=== PATIENT | female | born 1990 | race Caucasian/White ===

== ENCOUNTER 2021-06-04 19:48 | Emergency (ER) | payer OTHER ==
[2021-06-04] MEDS ORDERED: Ondansetron 4 MG/2 ML SDV IVPUSH ONE (20:34)
[2021-06-04] MEDS ORDERED: Sodium Chloride 0.9% 1,000 ML IV ONE (20:34)
[2021-06-04 20:51] LABS: CORONAVIRUS COVID-19 NAA NEGATIVE (NEGATIVE)
--- NOTE | 2021-06-04 21:37 | EDM.PDOC ---
ED HPI GENERAL MEDICAL PROBLEM - General Chief Complaint: HAND CHAIN MAKER Problem Stated Complaint: VOMITING/22WEEK PREG Time Seen by Provider: 06/04/21 20:02 Source of Information: Reports: Patient History Limitations: Reports: No Limitations - History of Present Illness INITIAL COMMENTS - FREE TEXT/NARRATIVE: 31-year-old female presents the emergency department with complaints of nausea and vomiting and diarrhea that started at approximately 1600 today. She states she has vomited 6-7 times since then is unable to keep any food or fluids down. She denies any fever, chills, cough, shortness of breath or body aches. She denies any urinary symptoms. Patient is almost 22 weeks , LMP the first week of January. Her due date is October 14, 2020. She is a 3 para 1. She had 1 miscarriage. She states that up until today she has had a healthy without any complications. She states she is normally healthy and does not take any prescription medications. Her HAND CHAIN MAKER is Dr. Zhao. Abdomen Pain Score (Numeric/FACES): 5 - Related Data Allergies Allergy/AdvReac Type Severity Reaction Status Date / Time diphenhydramine Allergy Severe Rash Verified 06/04/21 20:08 [From Benadryl] doxycycline Allergy Severe Rash Verified 06/04/21 20:08 sulfamethoxazole Allergy Severe Blisters Verified 06/04/21 20:08 [From Septra] trimethoprim [From Septra] Allergy Severe Blisters Verified 06/04/21 20:08 Home Meds: Home Meds Cetirizine [ZyrTEC] 10 mg PO DAILY 06/04/21 [History] Pnv No.95/Ferrous Fum/Folic AC [ Tablet] 1 tab PO DAILY 06/04/21 [History] Past Medical History HAND CHAIN MAKER History: Reports: Other HAND CHAIN MAKER History: vaginal delivery - Infectious Disease History Infectious Disease History: Reports: Novel Coronavirus - Past Surgical History Female Surgical History: Reports: D&C Social & Family History - Tobacco Use Tobacco Use Status *Q: Never Tobacco User - Caffeine Use Caffeine Use: Reports: Coffee - Recreational Drug Use Recreational Drug Use: No ED ROS GENERAL - Review of Systems Review Of Systems: Comprehensive ROS is negative, except as noted in HPI. ED EXAM, GI/ABD - Physical Exam Exam: See Below Exam Limited By: No Limitations General Appearance: Alert, WD/WN, Mild Distress Eyes: Bilateral: Normal Appearance Ears: Normal External Exam, Hearing Grossly Normal Nose: Normal Inspection Throat/Mouth: Normal Inspection, Normal Lips, Normal Voice, No Airway Compromise Head: Atraumatic Neck: Normal Inspection, Supple Respiratory/Chest: No Respiratory Distress, Lungs Clear, Normal Breath Sounds, No Accessory Muscle Use, Chest Non-Tender Cardiovascular: Normal Peripheral Pulses, Regular Rate, Rhythm, No Edema, No Murmur GI/Abdominal Exam: Normal Bowel Sounds, Soft, Non-Tender (Female) Exam: Deferred Rectal (Female) Exam: Deferred Back Exam: Normal Inspection Extremities: Normal Inspection Neurological: Alert, Oriented, Normal Cognition Psychiatric: Normal Affect, Normal Mood Skin Exam: Warm, Dry, Intact, Normal Color, No Rash Lymphatic: No Adenopathy Course - Vital Signs Text/Narrative:: Stated above, patient presents with nausea, vomiting and diarrhea that started this afternoon. The time of my exam, the patient is awake alert and oriented laying in bed. She states she has not had any vomiting since arriving in the emergency department and has taken a few sips of fluid. Physical exam is otherwise unremarkable. She is hemodynamically stable. Patient has been swabbed for Covid and influenza. Will medicate the patient with 1 L of normal saline as well as 4 mg of Zofran. Last Recorded V/S: Last Vital Signs Temp 97.9 F 06/04/21 20:13 Pulse 88 06/04/21 20:13 Resp 20 06/04/21 20:13 BP 119/82 06/04/21 20:13 Pulse Ox 100 06/04/21 20:13 - Orders/Labs/Meds Orders: Active Orders 24 hr Category Date Time Status Sodium Chloride 0.9% [Normal Saline] 1,000 ml Med 06/04/21 20:34 Active IV ONETIME Medication Orders Sodium Chloride (Normal Saline) 1,000 mls @ 999 mls/hr IV ONETIME ONE Stop: 06/04/21 21:34 Last Admin: 06/04/21 20:41 Dose: 999 mls/hr Documented by: MARIKA Labs: Laboratory Tests 06/04/21 06/04/21 Range/Units 20:00 20:00 Urine Color Yellow (Yellow) Urine Appearance Slt cloudy H (Clear) Urine pH 5.5 (5.0-8.0) Ur Specific [place] 1.025 (1.005-1.030) Urine Protein Trace H (Negative) Urine Glucose (UA) Negative (Negative) Urine Ketones 3+ H (Negative) Urine Occult Blood Negative (Negative) Urine Nitrite Negative (Negative) Urine Bilirubin 1+ H (Negative) Urine Urobilinogen 0.2 (0.2-1.0) Ur Leukocyte Esterase Trace H (Negative) Urine RBC 0-5 (0-5) /hpf Urine WBC 0-5 (0-5) /hpf Ur Squamous Epith Cells 10-20 H (0-5) /hpf Urine Bacteria Many H (FEW) /hpf Urine Mucus Few (FEW) /hpf Influenza Type A RNA Negative (NEGATIVE) Influenza Type B RNA Negative (NEGATIVE) SARS-CoV-2 RNA (GHAZALA) Negative (NEGATIVE) Meds: Medications Generic Name Dose Route Start Last Admin Trade Name Freq PRN Reason Stop Dose Admin Sodium Chloride 1,000 mls @ 999 mls/hr 06/04/21 20:34 06/04/21 20:41 Normal Saline IV 06/04/21 21:34 999 mls/hr ONETIME ONE Administration Discontinued Medications Generic Name Dose Route Start Last Admin Trade Name Freq PRN Reason Stop Dose Admin Ondansetron HCl 4 mg 06/04/21 20:34 06/04/21 20:41 Ondansetron 4 Mg/2 Ml Sdv IVPUSH 06/04/21 20:35 4 mg ONETIME ONE Administration - Re-Assessments/Exams Free Text/Narrative Re-Assessment/Exam: 06/04/21 21:35 Nursing staff notifies me that the patient is feeling much better. She has approximately 250 mL of fluids left in the 1 L of normal saline. 06/04/21 21:35 Influenza testing as well as Covid testing is negative. Urinalysis shows a trace leukocytes esterase however does appear to be contaminated. Patient has not had any urinary symptoms. She will be discharged home with recommendations that she drink plenty of fluids and get plenty rest. She will need to follow-up with her HAND CHAIN MAKER early next week. Departure - Departure Time of Disposition: 21:37 Disposition: Home, Self-Care 01 Condition: Good Clinical Impression: Gastroenteritis - Discharge Information Referrals: Corazon Zhao MD [Primary Care Provider] - Additional Instructions: You were seen in the emergency department this evening with nausea, vomiting and diarrhea that started at approximately 4:00 this afternoon. You were tested for Covid and influenza and these were negative. Urinalysis was completed that did appear contaminated. And you did state you have not had any urinary symptoms. While in the emergency department you did receive a liter of IV fluids as well as nausea medication and this did seem to help. Recommend that you go home and rest and drink plenty of fluids. Recommend clear liquids only for the next 24 hours and then advance to a bland diet such as oatmeal, rice, toast and bananas as tolerated. Recommend that you follow-up with your HAND CHAIN MAKER early next week for reevaluation. Should your condition worsen or change, do not hesitate returning to the emergency department. Sepsis Event Note (ED) - Focused Exam Vital Signs: Vital Signs Temp Pulse Resp BP Pulse Ox 06/04/21 20:13 97.9 F 88 20 119/82 100 - My Orders Last 24 Hours: My Active Orders 06/04/21 20:34 Sodium Chloride 0.9% [Normal Saline] 1,000 ml IV ONETIME - Assessment/Plan Last 24 Hours: My Active Orders 06/04/21 20:34 Sodium Chloride 0.9% [Normal Saline] 1,000 ml IV ONETIME
== END 2021-06-04 21:58 | disposition home or self-care (01) ==
LOC: JD.ED 19:48
DX: O99.612 Diseases of the digestive system complicating pregnancy, second trimester (principal); K52.9 Noninfective gastroenteritis and colitis, unspecified; Z20.822 Contact with and (suspected) exposure to COVID-19; Z88.1 Allergy status to other antibiotic agents; Z88.8 Allergy status to other drugs, medicaments and biological substances; Z88.2 Allergy status to sulfonamides; Z3A.22 22 weeks gestation of pregnancy
CPT/HCPCS: 0240U; 81001; 96374; 99284; J2405; J7030

== ENCOUNTER 2021-10-09 23:11 | Inpatient (IN) | payer OTHER ==
[2021-10-09] MEDS ORDERED: Ondansetron 4 MG/2 ML SDV IVPUSH PRN (23:38)
[2021-10-09] MEDS ORDERED: Nalbuphine HCl 10 MG/ 1ML Amp IVPUSH PRN (23:38)
[2021-10-09] MEDS ORDERED: Sodium Chloride 0.9% 10 ML Syringe FLUSH PRN (23:38)
[2021-10-09] MEDS ORDERED: Lactated Ringers 1,000 ML IV SCH (23:45)
[2021-10-09] MEDS ORDERED: Oxytocin/Lactated Ringers 10 UNIT/1,000 ML BAG IV SCH ×2 (23:45)
[2021-10-10] MEDS ORDERED: Lidocaine 1% 50 ML MDV INJECT SCH
[2021-10-10] MEDS ORDERED: ePHEDrine 50 MG/ML SDV IVPUSH PRN (00:18)
[2021-10-10] MEDS ORDERED: fentaNYL 100 MCG/2 ML SDV EPIDUR PRN (00:18)
[2021-10-10] MEDS ORDERED: Bupivacaine/fentaNYL/NS 100 ML Bag EPIDUR PRN (00:18)
[2021-10-10] MEDS ORDERED: Lidocaine 1% 50 ML MDV ONE (00:29)
[2021-10-10] MEDS ORDERED: Docusate Sodium 100 MG Cap PO PRN (01:13)
[2021-10-10] MEDS ORDERED: Acetaminophen 325 MG Tab PO PRN (01:13)
[2021-10-10] MEDS ORDERED: Benzocaine/Menthol 20%-0.5% Spray 78 GM Cannister TOP PRN (01:13)
[2021-10-10] MEDS ORDERED: Witch Hazel Medicated Pads 40/Jar TOP PRN (01:13)
[2021-10-10] MEDS ORDERED: Hydrocortisone Acetate 25 MG Supp RECTAL PRN (01:13)
[2021-10-10] MEDS ORDERED: Oxytocin/Lactated Ringers 10 UNIT/1,000 ML BAG IV SCH (01:13)
[2021-10-10] MEDS ORDERED: Magnesium Hydroxide 400 MG/5 ML Susp 30 ML Cup PO PRN (01:13)
[2021-10-10] MEDS: Ibuprofen 600 MG Tab PO PRN ×2 (03:07→18:08)
[2021-10-10] MEDS ORDERED: Sodium Chloride 0.9% 10 ML Syringe FLUSH SCH (09:00)
[2021-10-10] MEDS: Prenatal Multivitamin with Calcium/Folic Acid/Iron Tab PO SCH (09:14)
[2021-10-11] MEDS: Ibuprofen 600 MG Tab PO PRN (04:43)
[2021-10-11] MEDS: Prenatal Multivitamin with Calcium/Folic Acid/Iron Tab PO SCH (08:32)
== END 2021-10-11 17:30 | disposition home or self-care (01) | DRG 807 ==
LOC: JD.OBCHECK 23:11 → JD.OB 23:12 → JD.OBCHECK 23:37 → JD.OB 23:38 → OBSVTOIN 10-10 00:21 → JD.OB 10-10 00:22
PROVIDERS: ADMIT Obstetrics & Gynecology; ATTEND Obstetrics & Gynecology
PROC: 10E0XZZ Delivery of Products of Conception, External Approach (ICD-10-PCS; principal; 2021-10-10)
PROC: 0KQM0ZZ Repair Perineum Muscle, Open Approach (ICD-10-PCS; 2021-10-10)
DX: O70.1 Second degree perineal laceration during delivery (principal); Z37.0 Single live birth; Z3A.39 39 weeks gestation of pregnancy
CPT/HCPCS: 36415; 59025; 59409; 85025; 86592; A9270-GY; J2001; J2590; J7120

== ENCOUNTER 2023-06-26 06:18 | Emergency (ER) | payer OTHER ==
[2023-06-26 07:02] LABS: APPEARANCE,URINE CLEAR (Clear); BILIRUBIN,URINE NEGATIVE (Negative); COLOR,URINE YELLOW (Yellow); GLUCOSE,URINE NEGATIVE (Negative); KETONES,URINE NEGATIVE (Negative); LEUKOCYTE ESTERASE,URINE NEGATIVE (Negative); NITRITE,URINE NEGATIVE (Negative); OCCULT BLOOD,URINE 2+ (Negative); PROTEIN,URINE NEGATIVE (Negative); UROBILINOGEN,URINE 0.2 (0.2-1.0)
[2023-06-26 07:13] LABS: BASOPHILS PERCENT AUTO 0.5 % (0.0-1.0); EOSINOPHILS ABSOLUTE AUTO 0.2 K/mm3 (0.0-0.4); EOSINOPHILS PERCENT AUTO 2.2 % (0.0-6.0); HEMATOCRIT 44.3 % (37.0-47.0); HEMOGLOBIN 15.1 gm/dl (12.0-16.0); IMMATURE GRAN ABSOLUTE AUTO 0.03 K/mm3 (0.00-0.05); IMMATURE GRAN PERCENT AUTO 0.4 % (0.0-0.4); LYMPHOCYTES ABSOLUTE AUTO 2.3 K/mm3 (1.0-4.8); LYMPHOCYTES PERCENT AUTO 29.5 % (24.0-44.0); MEAN CORPUSCULAR HEMOGLOBIN 30.9 pg (28.0-32.0); MEAN CORPUSCULAR HGB CONC 34.1 g/dl (32.0-36.0); MEAN CORPUSCULAR VOLUME 90.6 fl (83.0-99.0); MEAN PLATELET VOLUME 10.1 fl (9.4-12.3); MONOCYTES ABSOLUTE AUTO 0.3 K/mm3 (0.0-0.8); MONOCYTES PERCENT AUTO 4.3 % (0.0-8.0); NEUTROPHILS ABSOLUTE AUTO 4.8 K/mm3 (1.8-7.7); NEUTROPHILS PERCENT AUTO 63.1 % (41.0-71.0); PLATELET COUNT,PLT 257 K/mm3 (150-400); RED BLOOD CELL COUNT 4.89 M/mm3 (4.10-5.30); WHITE BLOOD CELL COUNT,WBC 7.66 K/mm3 (3.9-11.3)
[2023-06-26 07:15] LABS: BACTERIA,URINE FEW /hpf (FEW); EPITHELIAL CELLS,URINE 0-5 /hpf (0-5); MUCUS,URINE FEW /hpf (FEW); WBC,URINE 0-5 /hpf (0-5)
[2023-06-26 07:33] LABS: A/G RATIO 0.8 (1-2); ALBUMIN 3.6 g/dl (3.4-5.0); ANION GAP 14.7 (5-15); BILIRUBIN TOTAL 0.4 mg/dL (0.2-1.0); BUN/CREATININE RATIO 8.6 (14-18); CALCIUM 9.4 mg/dL (8.5-10.1); CREATININE 0.7 mg/dL (0.55-1.02); EST CRCL DRUG DOSING (CG) 103.82 mL/min
[2023-06-26 07:38] LABS: POTASSIUM,K 3.7 mEq/L (3.5-5.1)
== END 2023-06-26 09:08 | disposition home or self-care (01) ==
LOC: JD.ED 06:18
DX: O20.8 Other hemorrhage in early pregnancy (principal); Z3A.16 16 weeks gestation of pregnancy; Z88.1 Allergy status to other antibiotic agents; Z88.2 Allergy status to sulfonamides; Z88.8 Allergy status to other drugs, medicaments and biological substances; Z86.16 Personal history of COVID-19
CPT/HCPCS: 36415; 76815; 76815-26; 80053; 81001; 85025; 85461; 86850; 86900; 86901; 99282; 99284; J2790

== ENCOUNTER 2023-12-03 08:10 | Inpatient (IN) | payer OTHER ==
[2023-12-03] MEDS ORDERED: Nalbuphine 10 MG/ML Syringe IVPUSH PRN (08:23)
[2023-12-03] MEDS ORDERED: Lidocaine 1% 50 ML MDV INJECT PRN (08:23)
[2023-12-03] MEDS ORDERED: Ondansetron 4 MG/2 ML SDV IVPUSH PRN (08:23)
[2023-12-03] MEDS ORDERED: Oxytocin/Lactated Ringers 30 UNIT/500 ML BAG IV SCH (08:30)
[2023-12-03 08:50] LABS: BASOPHILS PERCENT AUTO 0.4 % (0.0-1.0); EOSINOPHILS ABSOLUTE AUTO 0.3 K/mm3 (0.0-0.4); EOSINOPHILS PERCENT AUTO 2.9 % (0.0-6.0); HEMATOCRIT 41.8 % (37.0-47.0); IMMATURE GRAN ABSOLUTE AUTO 0.05 K/mm3 (0.00-0.05); IMMATURE GRAN PERCENT AUTO 0.5 % (0.0-0.4); LYMPHOCYTES ABSOLUTE AUTO 2.5 K/mm3 (1.0-4.8); LYMPHOCYTES PERCENT AUTO 23.6 % (24.0-44.0); MEAN CORPUSCULAR HEMOGLOBIN 31.5 pg (28.0-32.0); MEAN CORPUSCULAR HGB CONC 33.5 g/dl (32.0-36.0); MEAN PLATELET VOLUME 11.4 fl (9.4-12.3); MONOCYTES ABSOLUTE AUTO 0.6 K/mm3 (0.0-0.8); MONOCYTES PERCENT AUTO 5.6 % (0.0-8.0); RED BLOOD CELL COUNT 4.45 M/mm3 (4.10-5.30); WHITE BLOOD CELL COUNT,WBC 10.42 K/mm3 (3.9-11.3)
[2023-12-03 08:53] LABS: MEAN CORPUSCULAR VOLUME 93.9 fl (83.0-99.0); PLATELET COUNT,PLT 145 K/mm3 (150-400)
[2023-12-03] MEDS: Lactated Ringers 1,000 ML IV SCH (09:42)
[2023-12-03] MEDS: Oxytocin/Lactated Ringers 30 UNIT/500 ML BAG IV SCH (09:46)
[2023-12-03] MEDS ORDERED: ePHEDrine 50 MG/ML SDV IVPUSH PRN (14:48)
[2023-12-03] MEDS: Bupivacaine/fentaNYL/NS 100 ML Bag EPIDUR PRN (20:00)
[2023-12-03] MEDS: fentaNYL 100 MCG/2 ML SDV EPIDUR PRN (20:09)
[2023-12-04] MEDS: Ibuprofen 600 MG Tab PO PRN (00:17)
[2023-12-04] MEDS: Acetaminophen 325 MG Tab PO SCH (00:20)
[2023-12-04] MEDS: Witch Hazel Medicated Pads 40/Jar TOP PRN (00:21)
[2023-12-04] MEDS: Benzocaine/Menthol 20%-0.5% Spray 78 GM Cannister TOP PRN (00:22)
[2024-01-02] MEDS ORDERED: Bupivacaine 0.25% 10 ML SDV ONE
== END 2023-12-04 11:27 | disposition home or self-care (01) | DRG 807 ==
LOC: JD.OB 08:10 → OBSVTOIN 22:19 → JD.OB 22:20
PROVIDERS: ADMIT Obstetrics & Gynecology; ATTEND Obstetrics & Gynecology
PROC: 10E0XZZ Delivery of Products of Conception, External Approach (ICD-10-PCS; principal; 2023-12-03)
PROC: 0KQM0ZZ Repair Perineum Muscle, Open Approach (ICD-10-PCS; 2023-12-03)
PROC: 10907ZC Drainage of Amniotic Fluid, Therapeutic from Products of Conception, Via Natural or Artificial Opening (ICD-10-PCS; 2023-12-03)
PROC: 3E033VJ Introduction of Other Hormone into Peripheral Vein, Percutaneous Approach (ICD-10-PCS; 2023-12-03)
PROC: 3E0R3BZ Introduction of Anesthetic Agent into Spinal Canal, Percutaneous Approach (ICD-10-PCS; 2023-12-03)
PROC: 00HU33Z Insertion of Infusion Device into Spinal Canal, Percutaneous Approach (ICD-10-PCS; 2023-12-03)
PROC: 3E0334Z Introduction of Serum, Toxoid and Vaccine into Peripheral Vein, Percutaneous Approach (ICD-10-PCS; 2023-12-03)
DX: O70.1 Second degree perineal laceration during delivery (principal); Z37.0 Single live birth; Z3A.39 39 weeks gestation of pregnancy; Z88.2 Allergy status to sulfonamides; Z88.8 Allergy status to other drugs, medicaments and biological substances; Z98.890 Other specified postprocedural states
CPT/HCPCS: 36415; 36430; 51701; 59025; 59409; 85025; 85461; 86592; 86850; 86870; 86900; 86901; A9270-GY; C1758; J2790; J3010; J3490; J7120; J7999